=== PATIENT | male | born 1935 | race Caucasian/White ===

== ENCOUNTER → 2020-10-10 | Outpatient (CLI) | payer MEDICARE, OTHER ==
--- NOTE | 2020-10-10 14:20 | RADIOLOGY REPORT (SQ) ---
EXAM DESCRIPTION: UGI W/ DOUBLE CONTRAST IMAGES COMPLETED DATE/TIME: 10/10/2020 11:27 am REASON FOR STUDY: HEARTBURNM CHEST PAIN, LOSS OF TASTE R12 HEARTBURN R07.9 CHEST PAIN, UNSPECIFIED COMPARISON: None. TECHNIQUE: Under fluoroscopic guidance, patient ingested effervescent granules followed by thick and thin barium. Fluoroscopic spot images and routine radiographic images acquired and stored on PACS. 12 MM BARIUM TABLET GIVEN: Barium tablet passed through the esophagus and into the stomach without de lay. LIMITATIONS: None. FLUOROSCOPY TIME: FLUORO TIME: 2.1 minutes 17 images saved to PACS. FINDINGS: NEUROMUSCULAR COORDINATION OF SWALLOW: Normal. No aspiration. ESOPHAGEAL MOTILITY: Normal peristalsis. Mild tertiary contractions in the distal esophagus. ESOPHAGEAL MUCOSA: Normal mucosa without masses or ulceration. Tiny right lateral diverticulum in th e upper esophagus. GASTRO-ESOPHAGEAL JUNCTION: Small hiatal hernia is present. Moderate gastroesophageal reflux to the mid esophagus was observed. STOMACH: Normal without masses or ulcerations. GASTRIC OUTLET: No delay in emptying. Normal pylorus. DUODENAL BULB: Normal distention. No spasm or ulceration. DUODENUM: Mucosa normal. No extrinsic masses or malrotation. Small duodenum diverticulum. PROXIMAL SMALL BOWEL: Mucosa normal. No extrinsic masses or malrotation. NON-GI TRACT STRUCTURES: No significant finding. OTHER: No other significant finding. IMPRESSION: SMALL HIATAL HERNIA WITH MODERATE GASTROESOPHAGEAL REFLUX. OTHERWISE, UNREMARKABLE DOUB LE CONTRAST BARIUM SWALLOW / UPPER GI SERIES. COMMENT: NONE Quality ID 145: Final reports for procedures using fluoroscopy that document radiation exposure raul dulce, or exposure time and number of fluorographic images (if radiation exposure indices are not avail able) TECHNICAL DOCUMENTATION: JOB ID: [id number] 2010 [employer]- All Rights Reserved Reading location - IP/workstation name: [email or web address]
== END ==
LOC: RAD 08:46
PROVIDERS: ATTEND Obstetrics & Gynecology
DX: R07.9 Chest pain, unspecified (principal); K21.9 Gastro-esophageal reflux disease without esophagitis; K44.9 Diaphragmatic hernia without obstruction or gangrene; R43.9 Unspecified disturbances of smell and taste; R12 Heartburn
CPT/HCPCS: 74246

== ENCOUNTER → 2020-12-05 | Outpatient (CLI) | payer MEDICARE, OTHER ==
--- NOTE | 2020-12-06 09:57 | RADIOLOGY REPORT (SQ) ---
EXAM DESCRIPTION: CTA ABDOMEN/PELVIS W WO IMAGES COMPLETED DATE/TIME: 12/05/2020 2:59 pm REASON FOR STUDY: (M54.5)LOW BACK PAIN;(R93.5)ABN FINDINGS ON DX IMAGING OF ABD REGIONS, INC M54.5 LOW BACK PAIN R93.5 ABN FINDINGS ON DX IMAGING OF ABD REGIONS, INC RETROPE COMPARISON: None. TECHNIQUE: CT scan of the abdomen and pelvis performed with intravenous contrast using helical scann ing technique with dynamic intravenous contrast injection. Images reviewed with lung, soft tissue, an d bone windows. Reconstructed coronal and sagittal MPR images reviewed. All images stored on PACS. Advanced 3D imaging as volume rendering, MIPS, SSD performed? yes All CT scanners at this facility use dose modulation, iterative reconstruction, and/or weight based d osing when appropriate to reduce radiation dose to as low as reasonably achievable (ALARA). [facility]: Dose Right [facility]: CareDose [facility]: Dose Right [facility]: Teradose 4D [facility]: Echograph CONTRAST TYPE AND DOSE: contrast/concentration: Isovue 350.00 mmol/ml; Total Contrast Delivered: 100 .0 ml; Total Saline Delivered: 65.0 ml RENAL FUNCTION: Creatinine 1.2 LIMITATIONS: None. FINDINGS: AORTA AND VESSELS: 3 cm saccular aneurysm to right of midline just above the iliac bifurca tion. 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 The KENNEDI is patent. Bilateral renal arteries are patent. LUNG BASES: Cardiomegaly. Right atrial enlargement. LIVER: Normal size. No masses or dilated ducts. SPLEEN: Normal size. No focal lesions. PANCREAS: No masses. No significant calcifications. No adjacent inflammation or peripancreatic fluid collections. Pancreatic duct not dilated. GALLBLADDER: Surgically absent. ADRENAL GLANDS: No significant masses or asymmetry. RIGHT KIDNEY AND URETER: No mass, calculi or urinary tract obstruction. LEFT KIDNEY AND URETER: 6 mm renal calculus. No solid mass or hydronephrosis. RETROPERITONEUM: 10 mm para-aortic lymph node. No bulky adenopathy. BOWEL AND PERITONEAL CAVITY: Fecal material throughout nondilated colon. No masses or inflammatory c hanges. No free fluid or peritoneal masses. APPENDIX: Not visualized. ABDOMINAL WALL: Small fat containing umbilical hernia. BONY STRUCTURES: No significant or acute findings. 3-D IMAGING: Confirms the above findings. OTHER: No other significant finding. IMPRESSION: 1. 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 3. Nonobstructing left renal calculus. TECHNICAL DOCUMENTATION: JOB ID: [id number] Quality ID # [id number]: Final reports with documentation of one or more dose reduction techniques (e.g., Au tomated exposure control, adjustment of the mA and/or kV according to patient size, use of iterative reconstruction technique) 2010 [employer]- All Rights Reserved Reading location - IP/workstation name: [email or web address]
== END ==
LOC: RAD 14:16
PROVIDERS: ATTEND Obstetrics & Gynecology
DX: I71.9 Aortic aneurysm of unspecified site, without rupture (principal); N20.0 Calculus of kidney; K42.9 Umbilical hernia without obstruction or gangrene; M54.5 Low back pain; R93.5 Abnormal findings on diagnostic imaging of other abdominal regions, including retroperitoneum
CPT/HCPCS: 74174; 82565